=== PATIENT | female | born 1995 | race Caucasian/White ===

== ENCOUNTER 2021-02-13 05:56 | Inpatient (IN) | payer SELFPAY ==
[2021-02-13] MEDS ORDERED: Nalbuphine 10 MG/1 ML Vial IVPUSH PRN (06:47)
[2021-02-13] MEDS ORDERED: Ondansetron 4 MG/2 ML SDV IVPUSH PRN (06:47)
[2021-02-13] MEDS ORDERED: Lidocaine 1% 50 ML MDV INJECT ONE (06:47)
[2021-02-13] MEDS ORDERED: Lactated Ringers 1,000 ML IV SCH (07:00)
[2021-02-13] MEDS ORDERED: Oxytocin/Lactated Ringers 10 UNIT/1,000 ML BAG IV SCH (07:00)
--- NOTE | 2021-02-13 07:56 | PCM.PREANE ---
Preanesthetic Assessment - Procedure Proposed Procedure: Epidural - Anesthesia/Transfusion/Family Hx Anesthesia History: Prior Anesthesia Without Reaction Family History of Anesthesia Reaction: No Transfusion History: No Prior Transfusion(s) Intubation History: Unknown - Review of Systems General: No Symptoms Pulmonary: No Symptoms Cardiovascular: No Symptoms, Lightheadedness (positonal changes: get up too quickly) Gastrointestinal: No Symptoms, Constipation, Nausea Neurological: No Symptoms (Motion sickness) Other: Reports: None, Sinus Problem (congestion) - Physical Assessment NPO Status Date: 02/13/21 NPO Status Time: 05:30 Vital Signs: Last Vital Signs Temp 37.1 C 02/13/21 06:06 Pulse 81 02/13/21 06:06 Resp 16 02/13/21 06:06 BP 128/81 02/13/21 06:06 Pulse Ox 100 02/13/21 06:06 Height: 1.8 m Weight: 78.925 kg ASA Class: 2 Mental Status: Alert & Oriented x3 Airway Class: Mallampati = 2 Dentition: Reports: Normal Dentition, Caries Thyro-Mental Finger Breadths: 3 Mouth Opening Finger Breadths: 3 ROM/Head Extension: Full Lungs: Clear to Auscultation, Normal Respiratory Effort Cardiovascular: Regular Rate, Regular Rhythm, No Murmurs - Lab Values: Laboratory Last Values WBC 13.74 K/mm3 (3.98-10.04) H 02/13/21 07:20 RBC 4.04 M/mm3 (3.98-5.22) 02/13/21 07:20 Hgb 13.3 gm/dl (11.2-15.7) 02/13/21 07:20 Hct 39.2 % (34.1-44.9) 02/13/21 07:20 MCV 97.0 fl (79.4-94.8) H 02/13/21 07:20 MCH 32.9 pg (25.6-32.2) H 02/13/21 07:20 MCHC 33.9 g/dl (32.2-35.5) 02/13/21 07:20 RDW Std Deviation 46.4 fL (36.4-46.3) H 02/13/21 07:20 Plt Count 229 K/mm3 (182-369) 02/13/21 07:20 MPV 10.9 fl (9.4-12.3) 02/13/21 07:20 Neut % (Auto) 80.3 % (34.0-71.1) H 02/13/21 07:20 Lymph % (Auto) 8.2 % (19.3-51.7) L 02/13/21 07:20 [place] % (Auto) 10.7 % (4.7-12.5) 02/13/21 07:20 Eos % (Auto) 0.5 (0.7-5.8) L 02/13/21 07:20 Baso % (Auto) 0.1 % (0.1-1.2) 02/13/21 07:20 Neut # (Auto) 11.02 K/mm3 (1.56-6.13) H 02/13/21 07:20 Lymph # (Auto) 1.13 K/mm3 (1.18-3.74) L 02/13/21 07:20 [place]ah # (Auto) 1.47 K/mm3 (0.24-0.36) H 02/13/21 07:20 Eos # (Auto) 0.07 K/mm3 (0.04-0.36) 02/13/21 07:20 Baso # (Auto) 0.02 K/mm3 (0.01-0.08) 02/13/21 07:20 Above labs reviewed and noted and within acceptable ranges to proceed with epidural if desired. - Allergies Allergies/Adverse Reactions: Allergies Allergy/AdvReac Type Severity Reaction Status Date / Time No Known Allergies Allergy Verified 02/13/21 06:06 - Anesthesia Plan Pre-Op Medication Ordered: None - Acknowledgements Anesthesia Type Planned: Spinal, Epidural Pt an Appropriate Candidate for the Planned Anesthesia: Yes Alternatives and Risks of Anesthesia Discussed w Pt/Guardian: Yes Pt/Guardian Understands and Agrees with Anesthesia Plan: Yes PreAnesthesia Questionnaire - CURRENT (IN HOUSE) MEDS Current Meds: Current Medications Lactated Ringer's (Ringers, Lactated) 1,000 mls @ 100 mls/hr IV ASDIRECTED NEVAEH Oxytocin/Lactated Ringer's (Pitocin In Lr 10 Units/1,000 Ml) 10 unit in 1,000 mls @ 500 mls/hr IV .CONTINUOUS NEVAEH Nalbuphine HCl (Nalbuphine 10 Mg/1 Ml Vial) 10 mg IVPUSH Q2H PRN PRN Reason: Pain Ondansetron HCl (Ondansetron 4 Mg/2 Ml Sdv) 4 mg IVPUSH Q4H PRN PRN Reason: Nausea/Vomiting Sodium Chloride (Sodium Chloride 0.9% 10 Ml Syringe) 10 ml FLUSH 0900,2100 NEVAEH Discontinued Medications Lidocaine HCl (Lidocaine 1% 50 Ml Mdv) 50 ml INJECT ONETIME ONE Stop: 02/13/21 06:48
--- NOTE | 2021-02-13 09:27 | PCM.LDHP ---
L&D History of Present Illness - General Date of Service: 02/13/21 Admit Problem/Dx: Patient Status Order with Admit Dx/Problem 02/13/21 06:06 Patient Status [ADT] Routine 02/13/21 06:48 Patient Status [ADT] Routine Admission Diagnosis/Problem Admission Diagnosis/Problem 02/13/21 09:26 Laila is a 25-year-old 3 para 1-0-1-1 female who is admitted to labor and delivery on 02/13/2021 in active labor with a gestational age of 39-2/7 weeks and an LUIS ALBERTO of 02/18/2021. Source of Information: Patient History Limitations: Reports: No Limitations - History of Present Illness Introduction:: Laila is a 25-year-old 3 para 1-0-1-1 female who is admitted to labor and delivery on 02/13/2021 in active labor with a gestational age of 39-2/7 weeks and an LUIS ALBERTO of 02/18/2021. She reports contractions started this AM. They have progressed and upon admission were every 3 to 5 minutes apart. Moderate in intensity. Cervix had changed from 2 cm on last evaluation clinic on 02/07/2021 to 5 cm upon admission. Bulging bag pop noted. No bleeding was noted. Upon admission heart tones were good and contractions were confirmed with the monitor and clinical evaluation. HEAD OF PRECISION TARGETING history: Patient is a 3 para 1-0-1-1. Her last delivery was a vaginal delivery at term in 2016. Specifically 10/10/2016 at 39-2/7 weeks. Male infant named Bridger. history: Patient is seen at 10 weeks 3 days. She is seen on a regular basis. Weight gain was from approximately 130 to 170 pounds. Vital signs are stable throughout the course and fundal height growth was appropriate. labs included blood type of A+ with a negative antibody screen. Hemoglobin at first suman visit was 13.9 g/dL and platelets were 269,000. Rubella titer showed immunity. RPR was nonreactive. Hepatitis B surface antigen and hepatitis C assays were both nonreactive. Chlamydia and gonorrhea were negative. Second trimester hemoglobin is 13.3. 1 hour GTT was 114. Platelets were 219,000. Group B strep screen was negative. Allergies: None Medications: 1. vitamins 1 daily 2. Lexapro 10 mg p.o. daily 3. Zofran 4 mg every 4 hours as needed for nausea. Past medical history: 1. 2017 as above. 2. Miscarriage first trimester 3. Depression and anxiety historypostpartum after last 4. History of chlamydia Past surgical history: Unremarkable Family history: Maternal uncle with heart disease and a stroke. Mother with heart murmur otherwise unremarkable specifically unremarkable bleeding disorders, blood clot disorders, anesthesia or unusual reactions to medications. Social history: Patient is . is JR. [place], [place]. She does not use any significance alcohol, drugs or tobacco. Review of systems: Review of systems: In general patient has no complaints other than contractions as outlined above. Baby has been active. Skin: Negative Lungs: No infectious symptoms or shortness of breath Cardiovascular: No chest pain or exercise intolerance Breasts: Changes associated with . Patient plans to breast-feed. GI: Negative : changes. Musculoskeletal: Negative Neurological: Negative Physical exam: In general the patient is well-developed, well-nourished, pleasant female of stated age in no acute distress. Skin is warm dry without lesions. HEENT, neck and back within normal limits. Lungs are clear with good breath sounds in all lung medley. Cardiovascular exam shows regular and rhythm without murmurs. Breast exam is deferred reported to have been done at first visit. It is not repeated at this time. Abdomen is gravid with fundal height consistent with term . Genital per my initial evaluation in labor and delivery shows cervix to be 5 cm, 100% effaced, bulging bag pop, anterior position, very soft, cephalic presentation noted.. Extremities and neurological exam are grossly within normal limits. - Related Data Allergies/Adverse Reactions: Allergies Allergy/AdvReac Type Severity Reaction Status Date / Time No Known Allergies Allergy Verified 02/13/21 06:06 Past Medical History HEAD OF PRECISION TARGETING History: Reports: , Spontaneous Psychiatric History: Reports: Other (See Below) Other Psychiatric History: PP Depression - Past Surgical History HEENT Surgical History: Reports: Other (See Below) Other HEENT Surgeries/Procedures: [place] teeth extraction Social & Family History - Family History Family Medical History: No Pertinent Family History - Tobacco Use Tobacco Use Status *Q: Never Tobacco User Second Hand Smoke Exposure: No - Recreational Drug Use Recreational Drug Use: No H&P Review of Systems - Review of Systems: Review Of Systems: See Below L&D Exam - Exam Exam: See Below - Vital Signs Vital Signs: Last Vital Signs Temp 37.1 C 02/13/21 06:06 Pulse 81 02/13/21 06:06 Resp 16 02/13/21 06:06 BP 128/81 02/13/21 06:06 Pulse Ox 100 02/13/21 06:06 Weight: 78.925 kg - Patient Data Lab Results Last 24 hrs: Laboratory Results - last 24 hr 02/13/21 02/13/21 02/13/21 Range/Units 06:58 07:20 07:20 WBC 13.74 H (3.98-10.04) K/mm3 RBC 4.04 (3.98-5.22) M/mm3 Hgb 13.3 (11.2-15.7) gm/dl Hct 39.2 (34.1-44.9) % MCV 97.0 H (79.4-94.8) fl MCH 32.9 H (25.6-32.2) pg MCHC 33.9 (32.2-35.5) g/dl RDW Std Deviation 46.4 H (36.4-46.3) fL Plt Count 229 (182-369) K/mm3 MPV 10.9 (9.4-12.3) fl Neut % (Auto) 80.3 H (34.0-71.1) % Lymph % (Auto) 8.2 L (19.3-51.7) % [place] % (Auto) 10.7 (4.7-12.5) % Eos % (Auto) 0.5 L (0.7-5.8) Baso % (Auto) 0.1 (0.1-1.2) % Neut # (Auto) 11.02 H (1.56-6.13) K/mm3 Lymph # (Auto) 1.13 L (1.18-3.74) K/mm3 [place] # (Auto) 1.47 H (0.24-0.36) K/mm3 Eos # (Auto) 0.07 (0.04-0.36) K/mm3 Baso # (Auto) 0.02 (0.01-0.08) K/mm3 SARS-CoV-2 RNA (SHELLY) Negative (NEGATIVE) Blood Type A POSITIVE Gel Antibody Screen Negative Result Diagrams: 02/13/21 07:20 - Problem List (1) 39 weeks gestation of SNOMED Code(s): 26984062 ICD Code: Z3A.39 - 39 WEEKS GESTATION OF Status: Acute Current Visit: Yes Problem List Initiated/Reviewed/Updated: Yes Orders Last 24hrs: Active Orders 24 hr Category Date Time Status Patient Status [ADT] Routine ADT 02/13/21 06:06 Active Patient Status [ADT] Routine ADT 02/13/21 06:48 Active Activity as Tolerated [RC] PFP Care 02/13/21 06:48 Active Communication Order [RC] ASDIRECTED Care 02/13/21 06:48 Active Heart Tones [RC] ASDIRECTED Care 02/13/21 06:48 Active Non Stress Test [RC] PER UNIT ROUTINE Care 02/13/21 06:48 Active Notify Provider [RC] PFP Care 02/13/21 06:48 Active Notify Provider [RC] PRN Care 02/13/21 06:48 Active Peripheral IV Care [RC] . DIRECTED Care 02/13/21 06:48 Active Vital Signs [RC] PER UNIT ROUTINE Care 02/13/21 06:06 Active Vital Signs [RC] PER UNIT ROUTINE Care 02/13/21 06:48 Active Regular Diet [DIET] Diet 02/13/21 Breakfast Active PATIENT RETYPE [BBK] Routine Lab 02/13/21 08:46 Ordered RAPID PLASMA REAGIN,RPR [CHEM] Routine Lab 02/13/21 07:20 Received Lactated Ringers [Ringers, Lactated] 1,000 ml Med 02/13/21 07:00 Active IV ASDIRECTED Nalbuphine [Nubain] Med 02/13/21 06:47 Active 10 mg IVPUSH Q2H PRN Ondansetron [Zofran] Med 02/13/21 06:47 Active 4 mg IVPUSH Q4H PRN Oxytocin/Lactated Ringers [Pitocin in LR 10 Units/1,000 Med 02/13/21 07:00 Active ML] 10 unit in 1,000 ml IV .CONTINUOUS Sodium Chloride 0.9% [Saline Flush] Med 02/13/21 09:00 Active 10 ml FLUSH 0900,2100 Electronic Heart Tones Ext w TOCO [WOMSER] Oth 02/13/21 06:48 Ordered Routine Electronic Heart Tones Internal [WOMSER] Per Unit Ot 02/13/21 06:48 Ordered Routine Peripheral IV Insertion Adult [OM.PC] Routine Oth 02/13/21 06:48 Ordered Resuscitation Status Routine Resus Stat 02/13/21 06:06 Ordered Medication Orders Lactated Ringer's (Ringers, Lactated) 1,000 mls @ 100 mls/hr IV ASDIRECTED NEVAEH Oxytocin/Lactated Ringer's (Pitocin In Lr 10 Units/1,000 Ml) 10 unit in 1,000 mls @ 500 mls/hr IV .CONTINUOUS NEVAEH Nalbuphine HCl (Nalbuphine 10 Mg/1 Ml Vial) 10 mg IVPUSH Q2H PRN PRN Reason: Pain Ondansetron HCl (Ondansetron 4 Mg/2 Ml Sdv) 4 mg IVPUSH Q4H PRN PRN Reason: Nausea/Vomiting Sodium Chloride (Sodium Chloride 0.9% 10 Ml Syringe) 10 ml FLUSH 0900,2100 [facility] Assessment/Plan Comment:: 1Marina is a 25-year-old 3 para 1-0-1-1 female who is admitted to labor and delivery on 02/13/2021 in active labor with a gestational age of 39-2/7 weeks and an LUIS ALBERTO of 02/18/2021. 2. Patient plans to breast-feed 3. Risk factors for the : Minimal 4. Group B strep screen negative 5. Patient plans for natural labor. 6. Tdap given on 07/02/2020. She is rubella immune. Plan: 1. Anticipate 2. Routine labs per protocol consist of COVID-19 and RPR. 3. Support breast-feeding decision
[2021-02-13] MEDS ORDERED: Witch Hazel Medicated Pads 40/Jar TOP PRN (09:56)
[2021-02-13] MEDS ORDERED: Benzocaine/Menthol 20%-0.5% Spray 78 GM Cannister TOP PRN (09:56)
[2021-02-13] MEDS ORDERED: Acetaminophen 325 MG Tab PO PRN (09:56)
[2021-02-13] MEDS: Ibuprofen 600 MG Tab PO PRN ×2 (11:04→18:48)
--- NOTE | 2021-02-13 12:36 | PCM.SN.2 ---
- Free Text/Narrative Note: Delivery note: Stage I: Laila is a 25-year-old 3 para 1-0-1-1 female who is admitted to labor and delivery on 02/13/2021 in active labor with a gestational age of 39-2/7 weeks and an LUIS ALBERTO of 02/18/2021. She was approximately 4-1/2-5 cm upon admission, 90% effaced, cephalic presentation, anterior, bulging bag pop, very stretchy. She underwent artificial rupture membranes with resultant clear amniotic fluid. She had a natural labor and declined any analgesia. heart tones were reassuring throughout labor course. Labor progressed rapidly and at approximately 0900 hrs. she became completely dilated. At approximately 930 hours she began pushing and with 2 contractions delivered the baby. Stage II: Baby delivered in a direct occiput anterior position. After external restitution of the head the anterior shoulder and posterior shoulder delivered with gentle upward. Baby was then placed on mom's abdomen. Baby delivered at 38 hours on 02/13/2021. Laila had a small superficial laceration which was eventually closed with 1 suture of 3-0 Monocryl. No analgesia/anesthesia was used for the repair. Patient tolerated this well.. Baby is female infant, Apgars 8 and 8. Weight was 3510 g -(7 pounds 12 ounces) and length is 20.0 inches. The baby was placed on mom's abdomen. Nose and mouth were bulb suctioned. The cord is allowed to pulsate for 3 minutes and then was clamped x2 and cut by the baby's father JR. The Pitocin was increased to 500 cc an hour to facilitate increase in uterine tone and decrease likelihood of bleeding. Cord blood was obtained. The umbilical cord had 3 vessels. Stage III: The placenta delivered at 0943 hrs. on 02/13/2021 in a Hannon presentation. It appeared intact and complete and was discarded per patient desire. Estimate blood loss was 200 cc. Patient plans to breast-feed. Condition: Good
[2021-02-13] MEDS: Sodium Chloride 0.9% 10 ML Syringe FLUSH SCH ×2 (18:50→21:28)
[2021-02-14] MEDS: Ibuprofen 600 MG Tab PO PRN ×2 (06:42→14:09)
--- NOTE | 2021-02-14 07:44 | PCM.SN.2 ---
- Free Text/Narrative Note: Post Progress Note PPD #1 Subjective: Doing well overall. Ambulating without difficulty. Lochia minimal. Voiding without difficulty. Tolerating regular diet without nausea or vomiting. Pain controlled with oral medications. Breast-feeding with minimal difficulty. Objective: Vitals: Vital Signs - 24 hr 02/13/21 02/13/21 02/13/21 15:00 16:08 19:51 Temperature 36.3 C 36.4 C Temperature [ 36.3 C Temporal] Pulse, 72 78 Peripheral Pulse, 72 Peripheral [ Pulse Oximetry] Respiratory 14 14 14 Rate Blood Pressure 121/79 119/73 Blood Pressure 121/79 [Left Arm] O2 Sat by Pulse 96 96 97 Oximetry 02/14/21 04:11 Temperature 36.4 C Temperature [ Temporal] Pulse, 71 Peripheral Pulse, Peripheral [ Pulse Oximetry] Respiratory 14 Rate Blood Pressure 110/56 L Blood Pressure [Left Arm] O2 Sat by Pulse 94 L Oximetry Physical Exam General: Alert and oriented, no acute distress Lungs: Clear to auscultation bilaterally Heart: Regular rate and rhythm Abdomen: Soft, minimal appropriate tenderness, non-distended, fundus midline, nontender, and 3 fingerbreadths below the umbilicus Extremities: No edema in bilateral lower extremities, no calf tenderness bilaterally Laboratory Results - last 24 hr 02/13/21 02/13/21 02/13/21 Range/Units 06:58 07:20 07:20 RPR Non-reactive (NONREACTIVE) SARS-CoV-2 RNA (SHELLY) Negative (NEGATIVE) Blood Type A POSITIVE Gel Antibody Screen Negative ASSESSMENT: 25-year-old female -0-1-2 s/p normal vaginal delivery PPD #1, complicated by history of depression PLAN: Doing well Breast-feeding with minimal difficulty. Assist as needed Lochia minimal. Continue to monitor for appropriate lochia. Continue routine care Anticipate discharge home today Tima Magallon MD 7:42 AM 02/14/2021
[2021-02-14] MEDS ORDERED: Prenatal Multivitamin with Calcium/Folic Acid/Iron Tab PO SCH (09:00)
[2021-02-14] MEDS: Sodium Chloride 0.9% 10 ML Syringe FLUSH SCH (11:52)
--- NOTE | 2021-02-14 13:02 | PCM.DCSUM1 ---
Discharge Summary - Hospital Course Free Text/Narrative:: Delivery note: Stage I: Laila is a 25-year-old 3 para 1-0-1-1 female who is admitted to labor and delivery on 02/13/2021 in active labor with a gestational age of 39-2/7 weeks and an LUIS ALBERTO of 02/18/2021. She was approximately 4-1/2-5 cm upon admission, 90% effaced, cephalic presentation, anterior, bulging bag pop, very stretchy. She underwent artificial rupture membranes with resultant clear amniotic fluid. She had a natural labor and declined any analgesia. heart tones were reassuring throughout labor course. Labor progressed rapidly and at approximately 0900 hrs. she became completely dilated. At approximately 930 hours she began pushing and with 2 contractions delivered the baby. Stage II: Baby delivered in a direct occiput anterior position. After external restitution of the head the anterior shoulder and posterior shoulder delivered with gentle upward. Baby was then placed on mom's abdomen. Baby delivered at 38 hours on 02/13/2021. Laila had a small superficial laceration which was eventually closed with 1 suture of 3-0 Monocryl. No analgesia/anesthesia was used for the repair. Patient tolerated this well.. Baby is female , Apgars 8 and 8. Weight was 3510 g -(7 pounds 12 ounces) and length is 20.0 inches. The baby was placed on mom's abdomen. Nose and mouth were bulb suctioned. The cord is allowed to pulsate for 3 minutes and then was clamped x2 and cut by the baby's father JR. The Pitocin was increased to 500 cc an hour to facilitate increase in uterine tone and decrease likelihood of bleeding. Cord blood was obtained. The umbilical cord had 3 vessels. Stage III: The placenta delivered at 0943 hrs. on 02/13/2021 in a Hannon presentation. It appeared intact and complete and was discarded per patient desire. Estimate blood loss was 200 cc. Patient plans to breast-feed. Condit ion: Good Diagnosis: Stroke: No - Discharge Data Discharge Date: 02/14/21 Discharge Disposition: Home, Self-Care 01 Condition: Good - Referral to Home Health Primary Care Physician: Kirti Jameson MD - Discharge Diagnosis/Problem(s) (1) Vaginal delivery SNOMED Code(s): 491048969 ICD Code: O80 - ENCOUNTER FOR FULL-TERM UNCOMPLICATED DELIVERY Status: Acute Current Visit: Yes (2) History of depression SNOMED Code(s): 580333887 ICD Code: Z87.59 - PERSONAL HISTORY OF COMP OF PREG, CHLDBRTH AND THE PUERP; Z86.59 - PERSONAL HISTORY OF OTHER MENTAL AND BEHAVIORAL DISORDERS Status: Acute Current Visit: Yes (3) 39 weeks gestation of SNOMED Code(s): 76512361 ICD Code: Z3A.39 - 39 WEEKS GESTATION OF Status: Acute Current Visit: Yes - Patient Summary/Data Complications: None Consults: None Hospital Course: Laila Vides was admitted for active labor. On admission her cervix was dilated to 4.5 to 5 cm. She was GBS negative. She had artificial rupture of membranes with clear fluid. She progressed to complete and began pushing. On 02/13/2021 she had a normal vaginal delivery of a live male at 09:38. Apgars of 8 and 8. Weight of 3510 g (7 pounds 11.8 ounces). Her course was uneventful. Her pain was well controlled and she had minimal lochia. She was ambulating, tolerating a regular diet and voiding normally. She was breast-feeding with minimal difficulty. She was afebrile and her hematocrit was 39.2 on admission. She desired to be discharged home on the morning of PPD #1. Her blood type is A+. - Patient Instructions Diet: Regular Diet as Tolerated Activity: Apply Ice, As Tolerated Activity, Other: Nothing in the vagina for 6 weeks Driving: May Drive Today Showering/Bathing: May Shower Notify Provider of: Fever, Increased Pain, Swelling and Redness, Drainage, Nausea and/or Vomiting Other/Special Instructions: Please contact your physician's office if you have heavy vaginal bleeding enough to soak a pad in less than an hour for several hours. Monitor for any signs of an infection in the breasts with severe pain or redness of the breast. - Discharge Plan *PRESCRIPTION DRUG MONITORING PROGRAM REVIEWED*: Not Applicable *COPY OF PRESCRIPTION DRUG MONITORING REPORT IN PATIENT MATILDA: Not Applicable Home Medications: Home Meds Acetaminophen [Tylenol] 650 mg PO Q6H PRN tablet 02/14/21 [Rx] Benzocaine/Menthol [Dermoplast Pain Relief 20%-0.5% Medon] 1 spray TOP ASDIRECTED PRN canister 02/14/21 [Rx] Ibuprofen [Motrin] 600 mg PO Q6H PRN tablet 02/14/21 [Rx] Vit with Ca/FA/Iron [ Plus Iron] 1 each PO DAILY tablet 02/14/21 [Rx] ricky Orta [Tucks] 1 pad TOP ASDIRECTED PRN pad 02/14/21 [Rx] Patient Handouts: Care of a Perineal Tear, Care After Vaginal Delivery Referrals: Kirti Jameson MD [Primary Care Provider] - (Follow-up in 3 to 6 weeks for routine visit or earlier as needed.) - Discharge Summary/Plan Comment DC Time >30 min.: No Total # of Minutes for Discharge Time: 15 minutes - Patient Data Vitals - Most Recent: Last Vital Signs Temp 36.8 C 02/14/21 08:20 Pulse 63 02/14/21 08:20 Resp 12 02/14/21 08:20 BP 126/69 02/14/21 08:20 Pulse Ox 97 02/14/21 08:20 Weight - Most Recent: 78.925 kg I&O - Last 24 hours: Intake & Output 02/13/21 02/14/21 02/14/21 22:59 06:59 14:59 Intake Total 0 Balance 0 Lab Results - Last 24 hrs: Laboratory Results - last 24 hr 02/13/21 Range/Units 07:20 RPR Non-reactive (NONREACTIVE) Med Orders - Current: Current Medications Acetaminophen (Acetaminophen 325 Mg Tab) 650 mg PO Q4H PRN PRN Reason: mild pain or fever Benzocaine/Menthol (Benzocaine/Menthol 20%-0.5% Medon 78 Gm Cannister) 0 gm TOP ASDIRECTED PRN PRN Reason: Perineal Comfort Measure Last Admin: 02/13/21 11:05 Dose: 1 can Documented by: Lactated Ringer's (Ringers, Lactated) 1,000 mls @ 100 mls/hr IV ASDIRECTED NEVAEH Oxytocin/Lactated Ringer's (Pitocin In Lr 10 Units/1,000 Ml) 10 unit in 1,000 mls @ 500 mls/hr IV .CONTINUOUS NEVAEH Last Admin: 02/13/21 11:06 Dose: 500 mls/hr Documented by: Ibuprofen (Ibuprofen 600 Mg Tab) 600 mg PO Q4H PRN PRN Reason: Mild pain or fever Last Admin: 02/14/21 06:42 Dose: 600 mg Documented by: Nalbuphine HCl (Nalbuphine 10 Mg/1 Ml Vial) 10 mg IVPUSH Q2H PRN PRN Reason: Pain Ondansetron HCl (Ondansetron 4 Mg/2 Ml Sdv) 4 mg IVPUSH Q4H PRN PRN Reason: Nausea/Vomiting Prenat Multivit/Pacific/Iron/Folic Ac ( Multivitamin With Calcium/Folic Acid/Iron Tab) 1 each PO DAILY [facility] Last Admin: 02/14/21 08:23 Dose: 1 each Documented by: Sodium Chloride (Sodium Chloride 0.9% 10 Ml Syringe) 10 ml FLUSH 0900,2100 [facility] Last Admin: 02/14/21 11:52 Dose: Not Given Documented by: Ricky Orta (Ricky Orta Medicated Pads 40/Jar) 1 pad TOP ASDIRECTED PRN PRN Reason: Perineal Comfort Measure Last Admin: 02/13/21 11:05 Dose: 1 tub Documented by: Discontinued Medications Lidocaine HCl (Lidocaine 1% 50 Ml Mdv) 50 ml INJECT ONETIME ONE Stop: 02/13/21 06:48 Last Admin: 02/13/21 18:50 Dose: Not Given Documented by:
== END 2021-02-14 14:54 | disposition home or self-care (01) | DRG 807 ==
LOC: JD.OBCHECK 05:56 → JD.OB 06:01 → JD.OBCHECK 06:48 → OBSVTOIN 09:38 → JD.OB 09:39
PROVIDERS: ADMIT Obstetrics & Gynecology; ATTEND Obstetrics & Gynecology
PROC: 10E0XZZ Delivery of Products of Conception, External Approach (ICD-10-PCS; principal; 2021-02-13)
PROC: 10907ZC Drainage of Amniotic Fluid, Therapeutic from Products of Conception, Via Natural or Artificial Opening (ICD-10-PCS; 2021-02-13)
PROC: 0HQ9XZZ Repair Perineum Skin, External Approach (ICD-10-PCS; 2021-02-13)
DX: O70.0 First degree perineal laceration during delivery (principal); Z37.0 Single live birth; Z3A.39 39 weeks gestation of pregnancy; Z20.822 Contact with and (suspected) exposure to COVID-19
CPT/HCPCS: 36415; 59025; 59409; 85025; 86592; 86850; 86900; 86901; A9270-GY; J2590; U0002